=== PATIENT | female | born 1990 | race Two or more races ===

== ENCOUNTER 2020-09-11 22:04 | Emergency (ER) | payer MEDICAID ==
[~2020-09-11] VITALS: Ht 170.2 cm; Wt 95.0 kg
[2020-09-11 22:21] VITALS: BP 147/103
[2020-09-11] MEDS ORDERED: IBUPROFEN 800 MG TABLET ONE (23:13)
[2020-09-11] MEDS ORDERED: METHOCARBAMOL 750 MG TABLET ONE (23:13)
[2020-09-11] MEDS ORDERED: IBUPROFEN 800 MG TABLET PO ONE (23:30)
[2020-09-11] MEDS ORDERED: METHOCARBAMOL 750 MG TABLET PO ONE (23:30)
--- NOTE | 2020-09-11 23:33 | NUR ---
Pt dc in wheelchair due to pt insisting it was necessary. Pt educated that c-collar and wheelchair are not medically necessary but if it makes pt more comfortable then we can facilitate for dc.
== END 2020-09-11 23:41 | disposition home or self-care (01) ==
LOC: ED 22:34
DX: S39.012A Strain of muscle, fascia and tendon of lower back, initial encounter (principal); S16.1XXA Strain of muscle, fascia and tendon at neck level, initial encounter; V49.49XA Driver injured in collision with other motor vehicles in traffic accident, initial encounter; Y93.89 Activity, other specified; Y92.410 Unspecified street and highway as the place of occurrence of the external cause; Y99.8 Other external cause status
CPT/HCPCS: 99283